=== PATIENT | male | born 1970 | race Caucasian/White ===

== ENCOUNTER → 2022-02-10 11:39 | Outpatient (BNVA) | payer OTHER, SELFPAY | PROVIDERS: Visit Provider Internal Medicine | DX: S60.031A Contusion of right middle finger without damage to nail, initial encounter (principal); S66.911A Strain of unspecified muscle, fascia and tendon at wrist and hand level, right hand, initial encounter; W23.1XXA Caught, crushed, jammed, or pinched between stationary objects, initial encounter | CPT/HCPCS: 73110; 73130; 73140; 99203 ==

== ENCOUNTER 2022-02-23 09:30 | Outpatient (RCR) | payer OTHER, SELFPAY ==
--- NOTE | 2022-02-23 12:19 | MHC.OT.DC ---
[address] [phone] F: [phone] Occupational Therapy Discharge Note Provider: Charlee Ibanez Diagnosis: R 3rd digit contusion /right wrist sprain Date of Surgery: Date of Evaluation: 02/17/22 Date of Discharge: 02/23/22 Treatments to Date: 3 Cancellations to Date: No Shows to Date: Discharge Status: Achieved Goals Improved Function Independent with HEP Discharge Summary: Improved complaint of middle finger pain to 05/05. Pt has returned to work and yard work at home with no difficulty Goals met. Electronically Signed By: Grazyna Cook OT, CHT, CLT Reviewed/agree with student documentation: Therapist: Please Sign and return to therapist, thank you for your referral.
== END 2022-02-23 12:20 | disposition home or self-care (01) ==
LOC: HO.OT 09:30
PROVIDERS: PCP Nurse Practitioner Family; Visit Provider Physician Assistant Medical
DX: S60.031D Contusion of right middle finger without damage to nail, subsequent encounter (principal); S63.501D Unspecified sprain of right wrist, subsequent encounter
CPT/HCPCS: 29125; 97110; 97166; 97760

== ENCOUNTER → 2022-03-03 10:39 | Outpatient (BNVA) | payer OTHER, SELFPAY | PROVIDERS: PCP Nurse Practitioner Family; Visit Provider Physician Assistant Medical | DX: S60.031D Contusion of right middle finger without damage to nail, subsequent encounter (principal); S66.911D Strain of unspecified muscle, fascia and tendon at wrist and hand level, right hand, subsequent encounter; W23.1XXD Caught, crushed, jammed, or pinched between stationary objects, subsequent encounter | CPT/HCPCS: 99213 ==